=== PATIENT | female | born 2005 | race Hispanic/Latino ===

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

== ENCOUNTER 2023-02-20 14:34 | Inpatient (IN) | payer MEDICAID, OTHER, SELFPAY ==
[2023-02-17 12:42] LABS: Hemoglobin 9.8 g/dL (12.0-15.5); Platelet Count 209 10x3/uL (150-450)
[2023-02-17 13:12] LABS: HBSAg Index 0.26 S/CO (0-0.99); Hep B Surf Ag Non-Reactive S/CO (NonReactive); Syphilis Antibody Nonreactive (Nonreactive); Syphilis Antibody Index 0.05 S/CO (<1.00 Non-Reactive)
[2023-02-20] MEDS ORDERED: Carboprost 250 MCG/ML AMP IM PRN (15:01)
[2023-02-20] MEDS ORDERED: Tranexamic Acid 1,000 MG/10 ML VIAL IVP PRN (15:01)
[2023-02-20] MEDS ORDERED: Promethazine HCl 25 MG/ML VIAL IM PRN ×2 (15:01→18:36)
[2023-02-20] MEDS ORDERED: hydrALAZINE 20 MG/ML VIAL SLOW IVP PRN ×2 (15:01→20:23)
[2023-02-20] MEDS ORDERED: CEFAZOLIN 2 GM in Sodium Chloride 0.9% 100 ML IVPB SCH (15:01)
[2023-02-20] MEDS ORDERED: Misoprostol 200 MCG TAB PR PRN (15:01)
[2023-02-20] MEDS ORDERED: Methylergonovine 0.2 MG/ML VIAL IM PRN (15:01)
[2023-02-20] MEDS ORDERED: Lactated Ringer's 1,000 ML IV SCH (15:01)
[2023-02-20] MEDS ORDERED: Ondansetron PF 4 MG/2 ML Vial IVP PRN ×3 (15:01→20:23)
[2023-02-20] MEDS ORDERED: Bicitra 30 ML UDCUP PO PRN (15:01)
[2023-02-20] MEDS ORDERED: NS w/ Oxytocin 30 units 500 ML IV SCH (15:01)
[2023-02-20] MEDS ORDERED: Diphenoxylate HCl/Atropine Tablet PO PRN (15:01)
[2023-02-20] MEDS ORDERED: Famotidine/PF 20 mg/2ml Vial SLOW IVP PRN (15:01)
[2023-02-20 15:02] VITALS: BMI 31.9
[2023-02-20] MEDS ORDERED: ePHEDrine Sulfate 50 MG/10 ML VIAL ONE (17:06)
[2023-02-20] MEDS ORDERED: Ondansetron PF 4 MG/2 ML Vial ONE (17:06)
[2023-02-20] MEDS ORDERED: fentaNYL 50 mcg/mL 1 mL Vial ONE (17:06)
[2023-02-20] MEDS ORDERED: PHENYLEPHRINE-NS 100 MCG/ML 10 ML SYRINGE ONE (17:06)
[2023-02-20] MEDS ORDERED: Morphine PF 10 MG/10 ML VIAL ONE (17:06)
[2023-02-20] MEDS ORDERED: Oxytocin 10 UNITS/ML VIAL ONE ×2 (17:07→17:41)
[2023-02-20] MEDS ORDERED: Ketorolac Tromethamine 30 MG/ML VIAL ONE (17:41)
[2023-02-20] MEDS ORDERED: Ondansetron HCl/PF 4 MG/2 ML Vial IVP PRN (18:36)
[2023-02-20] MEDS ORDERED: L&D-Morphine 4 MG/ML VIAL SLOW IVP PRN (18:36)
[2023-02-20] MEDS ORDERED: Ketorolac Tromethamine 30 MG/ML VIAL IVP PRN (18:36)
[2023-02-20] MEDS ORDERED: Moisturizing Cream (Eucerin) 113 GM JAR TOP PRN (18:36)
[2023-02-20] MEDS ORDERED: Promethazine HCl 25 MG SUPP PR PRN (18:36)
[2023-02-20] MEDS ORDERED: Naloxone HCl 0.4 mg/ml Vial IV PRN (18:36)
[2023-02-20] MEDS ORDERED: Meperidine HCl/PF 25 MG/ML VIAL SLOW IVP PRN (18:36)
[2023-02-20] MEDS ORDERED: Naloxone HCl 0.4 mg/ml Vial IVP PRN ×2 (18:36)
[2023-02-20] MEDS ORDERED: Fentanyl 100 MCG/2 ML VIAL SLOW IVP PRN (18:36)
[2023-02-20] MEDS ORDERED: diphenhydrAMINE 50 MG/ML VIAL IVP PRN (18:36)
[2023-02-20] MEDS ORDERED: Communication Order-Pharmacy FS SCH (18:45)
[2023-02-20] MEDS ORDERED: Ketorolac Tromethamine 30 MG/ML VIAL IVP SCH (18:45)
[2023-02-20] MEDS ORDERED: Boostrix 0.5 ML (Tdap) VIAL (>/=7 yrs of age) IM ONE (20:23)
[2023-02-20] MEDS ORDERED: Simethicone Chewable 80 MG TAB PO PRN (20:23)
[2023-02-20] MEDS ORDERED: Lanolin Ointment 7 GM TUBE TOP PRN (20:23)
[2023-02-20] MEDS ORDERED: Bisacodyl 10 MG SUPP PR PRN (20:23)
[2023-02-20] MEDS ORDERED: diphenhydrAMINE 25 MG CAP PO PRN (20:23)
[2023-02-20] MEDS: Ferrous Sulfate 325 MG TAB PO SCH (22:08)
[2023-02-20] MEDS: Docusate 100 MG CAP PO SCH (22:08)
[2023-02-20] MEDS: Ketorolac Tromethamine 30 MG/ML VIAL IVP SCH (23:05)
[2023-02-21 04:23] LABS: Hemoglobin 9.2 g/dL (12.0-15.5); Mean Corpuscular HGB CONC 30.9 g/dL (32.0-36.0); Mean Corpuscular Hemoglobin 24.7 pg (27.0-33.0); Mean Corpuscular Volume 79.9 fl (81.6-98.3); Mean Platelet Volume 12.4 fl (7.4-10.4); Platelet Count 195 10x3/uL (150-450); RBC Distribution Width 17.5 % (11.5-14.5); Red Blood Cell (RBC) Count 3.73 10x6/uL (3.90-5.03); White Blood Cell (WBC) Count 12.6 10x3/uL (3.5-10.5)
[2023-02-21] MEDS: Ketorolac Tromethamine 30 MG/ML VIAL IVP SCH ×3 (06:14→17:58)
[2023-02-21] MEDS ORDERED: HYDROcodone/Acetaminophen 5/325 mg Tablet PO PRN (06:45)
[2023-02-21] MEDS: Prenatal Vitamin 1 TAB PO SCH (09:18)
[2023-02-21] MEDS: Docusate 100 MG CAP PO SCH ×2 (09:18→21:24)
[2023-02-21] MEDS: Ferrous Sulfate 325 MG TAB PO SCH ×2 (09:18→21:24)
[2023-02-21] MEDS: HYDROcodone/Acetaminophen 5/325 mg Tablet PO PRN (15:40)
[2023-02-22] MEDS: Ibuprofen 800 MG TAB PO SCH ×3 (00:11→18:29)
[2023-02-22] MEDS: HYDROcodone/Acetaminophen 5/325 mg Tablet PO PRN ×3 (04:24→18:31)
[2023-02-22] MEDS: Docusate 100 MG CAP PO SCH ×2 (10:46→21:18)
[2023-02-22] MEDS: Ferrous Sulfate 325 MG TAB PO SCH ×2 (10:46→21:18)
[2023-02-22] MEDS: Prenatal Vitamin 1 TAB PO SCH (10:52)
[2023-02-23] MEDS: Ibuprofen 800 MG TAB PO SCH ×2 (00:31→07:57)
[2023-02-23 07:46] VITALS: BP 111/62; TEMP 98.4
[2023-02-23] MEDS: Ferrous Sulfate 325 MG TAB PO SCH (07:57)
[2023-02-23] MEDS: Docusate 100 MG CAP PO SCH (07:57)
[2023-02-23] MEDS: Prenatal Vitamin 1 TAB PO SCH (07:57)
== END 2023-02-23 15:30 | disposition home or self-care (01) | DRG 788 ==
LOC: CSHLD 14:34 → CSHPP 20:40
PROVIDERS: ADMIT Family Medicine; ATTEND Family Medicine
PROC: 10D00Z1 Extraction of Products of Conception, Low, Open Approach (ICD-10-PCS; principal; 2023-02-20)
PROC: 3E033VJ Introduction of Other Hormone into Peripheral Vein, Percutaneous Approach (ICD-10-PCS; 2023-02-20)
DX: O34.211 Maternal care for low transverse scar from previous cesarean delivery (principal); O99.02 Anemia complicating childbirth; Z3A.39 39 weeks gestation of pregnancy; Z37.0 Single live birth
CPT/HCPCS: 36415; 51702; 85014; 85018; 85027; 85049; 86780; 86850; 86900; 86901; 87340; J1885; J2274; J2405; J2590; J3010; J3490